=== PATIENT | female | born 1990 | race Caucasian/White ===

== ENCOUNTER 2017-09-11 09:38 | Inpatient (IN) | payer OTHER ==
[~2017-09-11] VITALS: Ht 170.2 cm; Wt 97.7 kg
[2017-09-11] MEDS ORDERED: DIPHENHYDRAMINE 50 MG/ML, 1ML IVPush ONE ×2 (10:30→22:30)
[2017-09-11] MEDS ORDERED: SODIUM CHLORIDE FLUSH 10ML SYR IVF ONE (10:30)
[2017-09-11] MEDS ORDERED: SODIUM CHLORIDE 0.9% 1,000ML IVBOLUS ONE (10:30)
[2017-09-11] MEDS ORDERED: METOCLOPRAMIDE 5 MG/ML, 2ML IVPush ONE (10:30)
[2017-09-11] MEDS ORDERED: DIPHENHYDRAMINE 50 MG/ML, 1ML ONE (10:40)
[2017-09-11] MEDS ORDERED: METOCLOPRAMIDE 5 MG/ML, 2ML ONE (10:40)
[2017-09-11 11:23] LABS: MICROSCOPIC NOT IND
[2017-09-11 11:33] LABS: CULTURE INDICATED? NO
[2017-09-11 11:34] LABS: BASOPHILS # (AUTO) 0.03 x10^3/uL (0-0.1); BASOPHILS % (AUTO) 0 % (0-1); EOSINOPHILS # (AUTO) 0.01 x10^3/uL (0-0.4); EOSINOPHILS % (AUTO) 0 % (1-7); LYMPHOCYTES # (AUTO) 1.39 x10^3/uL (1-3.4); LYMPHOCYTES % (AUTO) 19 % (22-44); MD NO; MEAN CORPUSCULAR HEMOGLOBIN 29.5 pg (27.0-34.8); MEAN CORPUSCULAR HGB CONC 33.6 g/dL (32.4-35.8); MEAN CORPUSCULAR VOLUME 87.8 fL (80-100); MEAN PLATELET VOLUME 8.4 fL (7.4-10.4); MONOCYTES # (AUTO) 0.48 x10^3/uL (0.2-0.8); MONOCYTES % (AUTO) 6 % (2-9); NEUTROPHILS # (AUTO) 5.62 x10^3/uL (1.8-6.8); NEUTROPHILS % (AUTO) 75 % (42-75); PLATELET COUNT 265 x10^3/uL (130-400); RED BLOOD COUNT 4.62 x10^6/uL (3.82-5.3)
[2017-09-11 11:39] LABS: INTERNATIONAL NORMALIZED RATIO 1.11 (0.93-1.1); PROTHROMBIN TIME 11.4 Seconds (9.6-11.5)
[2017-09-11] MEDS ORDERED: MORPHINE SULFATE 4 MG/ML, 1ML ONE ×2 (11:42→14:02)
[2017-09-11 11:44] LABS: ALBUMIN 3.7 g/dL (3.4-5.0); ANION GAP 7 mmol/L (5-15); CALCIUM 8.3 mg/dL (8.5-10.1); CHLORIDE 108 mmol/L (98-107)
[2017-09-11] MEDS: MORPHINE SULFATE 4 MG/ML, 1ML IVPush PRN ×3 (11:46→21:42)
[2017-09-11 11:58] LABS: ALANINE AMINOTRANSFERASE 23 U/L (12-78); ALKALINE PHOSPHATASE 56 U/L (45-117); BILIRUBIN,TOTAL 0.8 mg/dL (0.2-1.0); CREATININE 0.73 mg/dL (0.55-1.02)
[2017-09-11] MEDS ORDERED: MORPHINE SULFATE 4 MG/ML, 1ML IVPush ONE (13:30)
[2017-09-11] MEDS ORDERED: SODIUM CHLORIDE 0.9%, 500ML IVBOLUS ONE (14:30)
[2017-09-11] MEDS ORDERED: LIDOCAINE-MPF 1%, 2ML ONE (15:31)
[2017-09-11] MEDS ORDERED: GADOBUTROL 10 MMOL/10 ML VIAL ONE (15:54)
[2017-09-11] MEDS ORDERED: PREN1TAB60 PO (16:48)
[2017-09-11 17:10] LABS: GLUCOSE, CSF 43 mg/dL (40-80); TOTAL PROTEIN,CSF 108 mg/dL (15-45)
[2017-09-11] MEDS: DEXAMETHASONE 4 MG/ML, 1ML IVPush SCH (18:00)
[2017-09-11] MEDS ORDERED: KETOROLAC 30 MG/1 ML IVPush ONE (18:00)
[2017-09-11] MEDS ORDERED: VANCOMYCIN PER PHARMACY MC PRN ×2 (18:00→19:00)
[2017-09-11] MEDS ORDERED: CEFTRIAXONE PMX 2GM/50ML 50 ML IV ONE (18:00)
[2017-09-11] MEDS ORDERED: VANCOMYCIN 1,800 MG in SODIUM CHLORIDE 0.9% 250 ML IV ONE (18:30)
[2017-09-11] MEDS ORDERED: POLYETHYLENE GLYCOL 17 GM PACKET PO PRN (19:00)
[2017-09-11] MEDS ORDERED: CEFTRIAXONE PMX 2GM/50ML 50 ML IV SCH (19:00)
[2017-09-11] MEDS ORDERED: BISACODYL 10 MG SUPP PR PRN (19:00)
[2017-09-11] MEDS ORDERED: ACETAMINOPHEN 325 MG TABLET PO PRN (19:00)
[2017-09-11] MEDS ORDERED: ONDANSETRON 2MG/ML, 2ML IVPush PRN (19:00)
[2017-09-11] MEDS ORDERED: ACYCLOVIR 900 MG in SODIUM CHLORIDE 0.9% 250 ML IV SCH (19:30)
[2017-09-11] MEDS ORDERED: HEPARIN 5,000 UNITS/ML, 1ML SQ SCH (19:30)
[2017-09-11 20:00] VITALS: BP 125/71
[2017-09-11] MEDS ORDERED: SODIUM CHLORIDE FLUSH 10ML SYR IVF SCH (21:00)
[2017-09-11] MEDS ORDERED: PHARMACOKINETIC MONITORING MC PRN (21:00)
[2017-09-11] MEDS ORDERED: PHARMACOKINETIC CONSULTATION MC ONE (21:00)
[2017-09-12] MEDS: DEXAMETHASONE 4 MG/ML, 1ML IVPush SCH
[2017-09-12 00:46] VITALS: BP 101/57
[2017-09-12] MEDS ORDERED: VANCOMYCIN 1,400 MG in SODIUM CHLORIDE 0.9% 250 ML IV SCH (05:00)
[2017-09-12] MEDS ORDERED: SENNA/DOCUSATE TABLET PO SCH (09:00)
== END 2017-09-12 01:30 | disposition short-term general hospital (02) | DRG 781 ==
LOC: ED 11:04 → EDIP 17:54 → 3NE 19:18
PROVIDERS: ADMIT Internal Medicine; ATTEND Internal Medicine
PROC: 009U3ZX Drainage of Spinal Canal, Percutaneous Approach, Diagnostic (ICD-10-PCS; principal; 2017-09-11)
PROC: B01B1ZZ Fluoroscopy of Spinal Cord using Low Osmolar Contrast (ICD-10-PCS; 2017-09-11)
DX: O99.351 Diseases of the nervous system complicating pregnancy, first trimester (principal); G03.9 Meningitis, unspecified; Z88.2 Allergy status to sulfonamides; O99.321 Drug use complicating pregnancy, first trimester; F12.90 Cannabis use, unspecified, uncomplicated; Z3A.01 Less than 8 weeks gestation of pregnancy; Z80.3 Family history of malignant neoplasm of breast; Z82.49 Family history of ischemic heart disease and other diseases of the circulatory system
CPT/HCPCS: 36415; 62270; 70450; 70546; 70551; 71045; 76801; 80053; 81003; 82945; 84157; 84702; 85025; 85610; 85730; 86480; 87070; 87205; 87252; 87529; 89051; 96374; 96375; A9585; J1644; J2405; J3370; J3490; J1200; J2765; J7030; J7040; J7050